=== PATIENT | male | born 1965 | race Caucasian/White ===

== ENCOUNTER 2017-05-29 07:15 | Emergency (ER) | payer OTHER ==
[2017-05-29] MEDS ORDERED: Acetaminophen/oxyCODONE 325-5 MG Tab PO ONE (07:26)
--- NOTE | 2017-05-29 07:33 | EDM.PDOC ---
ED HPI GENERAL MEDICAL PROBLEM - General Chief Complaint: Respiratory Problem Stated Complaint: RIB INJURY Time Seen by Provider: 05/29/17 07:21 Source of Information: Reports: Patient History Limitations: Reports: No Limitations - History of Present Illness INITIAL COMMENTS - FREE TEXT/NARRATIVE: The patient recently got over pneumonia. He had a couple rib fractures on the right with the pneumonia. He was on antibiotics and doing good until this morning he coughed and had severe pain to the right lateral chest. He also had burning pain that went down his right abdomen. He has an area ecchymosis to the right lower abdomen. He has no pain now in his abdomen but he still has pain in the right lateral chest with movement and breathing. He had a heart valve repaired as a child but no other medical problems. He has no fever, chills, nausea, or vomiting. Onset: Sudden Duration: Minutes: Location: Reports: Chest (Right lateral chest) Quality: Reports: Sharp Severity: Severe Improves with: Reports: Immobilization Worsens with: Reports: Breathing, Movement Context: Reports: Activity (He coughed this morning) Associated Symptoms: Reports: Chest Pain, Cough, Shortness of Breath. Denies: Fever/Chills, Nausea/Vomiting Right Upper Chest Pain Score (Numeric/FACES): 4 - Related Data Allergies Allergy/AdvReac Type Severity Reaction Status Date / Time codeine Allergy Airway Verified 05/29/17 07:31 Tightness Home Meds: Home Meds Albuterol Sulfate [Proair Hfa] 2 inhalation PO QID PRN 05/29/17 [History] Aspirin [Adult Low Dose Aspirin EC] 81 mg PO DAILY 05/29/17 [History] Torsemide [Torsemide] 50 mg PO DAILY 05/29/17 [History] oxyCODONE HCl/Acetaminophen [Percocet 5-325 mg Tablet] 1 - 2 each PO Q6HR PRN # 20 tablet 05/29/17 [Rx] ED ROS GENERAL - Review of Systems Review Of Systems: See Below Constitutional: Reports: No Symptoms HEENT: Reports: No Symptoms Respiratory: Reports: Shortness of Breath, Cough Cardiovascular: Reports: Chest Pain Endocrine: Reports: No Symptoms GI/Abdominal: Reports: No Symptoms : Reports: No Symptoms Musculoskeletal: Reports: No Symptoms ED EXAM, GENERAL - Physical Exam Exam: See Below Exam Limited By: No Limitations General Appearance: Alert, Mild Distress Ears: Normal External Exam Nose: Normal Inspection Head: Atraumatic, Normocephalic Neck: Normal Inspection Respiratory/Chest: No Respiratory Distress, Lungs Clear, Normal Breath Sounds Cardiovascular: Regular Rate, Rhythm, No Edema, No Murmur, Other (Pain upon palpation to the right lateral rib. No crepitous is felt.) GI/Abdominal: Soft, Non-Tender, No Organomegaly, No Mass, Other (Area of ecchymosis to the right lower abdomen. No pain upon palpation.) Back Exam: Normal Inspection Extremities: Normal Inspection Course - Vital Signs Last Recorded V/S: Last Vital Signs Temp 97.3 F 05/29/17 07:25 Pulse 73 05/29/17 07:25 Resp 24 H 05/29/17 07:25 BP 155/100 H 05/29/17 07:25 Pulse Ox 99 05/29/17 07:25 - Orders/Labs/Meds Orders: Active Orders 24 hr Category Date Time Status Ribs 2V w Chest Rt [CR] Stat Exams 05/29/17 07:27 Taken Meds: Medications Discontinued Medications Generic Name Dose Route Start Last Admin Trade Name Freq PRN Reason Stop Dose Admin Oxycodone/Acetaminophen 2 tab 05/29/17 07:26 05/29/17 07:43 Percocet 325-5 Mg PO 05/29/17 07:27 2 tab ONETIME ONE Administration - Re-Assessments/Exams Free Text/Narrative Re-Assessment/Exam: 05/29/17 07:33 I ordered percocet 5mg/325mg X 2 and an x-ray of his chest and right ribs. 05/29/17 08:03 The x-ray shows a fracture of the 10th and 11th ribs on the right side. It appears the 11th rib is more displaced. He may have move it when he coughed. I will get him an incentive spyrometer and percocet for pain. Departure - Departure Time of Disposition: 08:05 Disposition: Home, Self-Care 01 Condition: Good Clinical Impression: Rib fractures Qualifiers: Encounter type: subsequent encounter Rib fracture type: multiple ribs Fracture type: closed Laterality: right Fracture healing: with delayed healing Qualified Code(s): S22.41XG - Multiple fractures of ribs, right side, subsequent encounter for fracture with delayed healing - Discharge Information Prescriptions: oxyCODONE HCl/Acetaminophen [Percocet 5-325 mg Tablet] 1 - 2 each PO Q6HR PRN # 20 tablet PRN Reason: Pain Referrals: PCP,Not In Area [Primary Care Provider] - Starr Christianson [Physician] - 1 Week Forms: ED Department Discharge Additional Instructions: Use the incentive spyrometer 10 reps every other while awake for 5 days. Take the percocet 1 to 2 pills every 6 hours as needed for pain. Follow up with Dr Christianson or your doctor within a week if you are not better. Please return if you are worse. - My Orders Last 24 Hours: My Active Orders 05/29/17 07:27 Ribs 2V w Chest Rt [CR] Stat - Assessment/Plan Last 24 Hours: My Active Orders 05/29/17 07:27 Ribs 2V w Chest Rt [CR] Stat
--- NOTE | 2017-05-30 06:57 | CR ---
Chest and right ribs: Frontal view of the chest was obtained as well as three views of the right ribs. Comparison: No prior study. Heart size at the upper limits of normal. Tortuous thoracic aorta is seen. Stent is present within the heart. Sternotomy wires are noted. Central lung markings are increased. Difficult to exclude bronchitis or mild pulmonary vascular congestion or could be chronic. Mildly displaced fractures are seen within the 9th and 10th ribs. No additional rib abnormality is noted. Impression: 1. Mildly displaced fractures within two right lower ribs as noted above. 2. Increased central lung markings as noted above. Diagnostic code #3 MTDD
== END 2017-05-29 08:22 | disposition home or self-care (01) ==
LOC: JD.ED 07:15
DX: S22.41XG Multiple fractures of ribs, right side, subsequent encounter for fracture with delayed healing (principal); S30.1XXD Contusion of abdominal wall, subsequent encounter; Z79.82 Long term (current) use of aspirin; Z79.899 Other long term (current) drug therapy; Z88.5 Allergy status to narcotic agent; X58.XXXD Exposure to other specified factors, subsequent encounter
CPT/HCPCS: 71101; 99284; A9270; 99283